=== PATIENT | female | born 1950 | race American Indian/Alaskan Native ===

== ENCOUNTER 2018-03-14 08:26 | Emergency (ER) | payer BC, MEDICARE ==
[2018-03-14 08:35] VITALS: RESP 18; TEMP 97.9
--- NOTE | 2018-03-14 09:45 | ED PDOC ---
Arrival/HPI - General Chief Complaint: Upper Extremity Problem/Injury Time Seen by Provider: 03/14/18 09:40 Historian: Patient - History of Present Illness Narrative History of Present Illness (Text): 03/14/18 09:42 This 67 yo female with pmh htn, dm, hyperlipidemia, presents to this Emergency department complaining of left shoulder pain x 7 days. Patient stated pain radiates to her neck and right shoulder. Patient denies shortness of breath, chest pain, abdominal pain, urinary symptoms, dizziness, palpitation, or abnormal gait. Time/Duration: 1 week Context: Home Past Medical History - Provider Review Nursing Documentation Reviewed: Yes - Reproductive Menopause: Yes - Cardiac Hx Hypertension: Yes - Endocrine/Metabolic Hx Diabetes Mellitus Type 2: Yes - Psychiatric Hx Substance Use: No - Surgical History Hx Section: Yes Hx Joint Replacement: Yes (left hip 2009) - Anesthesia Hx Anesthesia: Yes Hx Anesthesia Reactions: No Family/Social History - Physician Review Nursing Documentation Reviewed: Yes Family/Social History: Other (noncontributory) Smoking Status: Light Smoker < 10 Cigarettes Daily Hx Alcohol Use: No Hx Substance Use: No Allergies/Home Meds Allergies/Adverse Reactions: Allergies No Known Allergies Allergy (Verified 03/14/18 08:35) Home Medications: Home Meds Medication Instructions Recorded Confirmed Amlodipine Besylate/Benazepril 1 cap PO QAM 01/29/16 03/14/18 [Lotrel 10 mg-40 mg] Aspirin [Aspirin EC] 81 mg PO QAM 01/29/16 03/14/18 Atorvastatin [Lipitor] 20 mg PO QPM 01/29/16 03/14/18 metFORMIN [glucOPHAGE] 500 mg PO QAM 01/29/16 03/14/18 Ascorbic Acid [Vitamin C] 1,000 mg PO DAILY 03/14/18 03/14/18 [place]-3 Fatty Acids/Fish Oil [Fish 1,000 mg PO DAILY 03/14/18 03/14/18 Oil 1,000 mg Capsule] Review of Systems - Review of Systems Constitutional: Normal. absent: Fatigue, Weight Change, Fevers, Night Sweats Eyes: Normal ENT: Normal Respiratory: Normal. absent: SOB, Cough Cardiovascular: Normal. absent: Chest Pain, Palpitations, Edema, Orthopnea, Syncope Gastrointestinal: Normal. absent: Abdominal Pain, Nausea, Vomiting Genitourinary Female: Normal. absent: Dysuria, Frequency, Hematuria Musculoskeletal: Neck Pain, Other (shoulder pain) Skin: Normal. absent: Rash Neurological: Normal. absent: Headache, Dizziness, Focal Weakness, Gait Changes , Speech Changes, Facial Droop, Disequilibrium, Seizure Endocrine: Normal Hemo/Lymphatic: Normal Psychiatric: Normal Physical Exam Vital Signs Temp Pulse Resp BP Pulse Ox 03/14/18 08:31 97.9 F 77 18 156/86 H 100 Temperature: Afebrile Blood Pressure: Normal Pulse: Regular Respiratory Rate: Normal Appearance: Positive for: Well-Appearing, Non-Toxic, Comfortable Pain Distress: None Mental Status: Positive for: Alert and Oriented X 3 - Systems Exam Head: Present: Atraumatic, Normocephalic Pupils: Present: PERRL Extroacular Muscles: Present: EOMI Conjunctiva: Present: Normal Mouth: Present: Moist Mucous Membranes Neck: Present: Normal Range of Motion, Trachea Midline. No: Meningeal Signs, MIDLINE TENDERNESS, Paraspinal Tenderness, Lymphadenopathy Respiratory/Chest: Present: Clear to Auscultation, Good Air Exchange. No: Respiratory Distress, Accessory Muscle Use, Wheezes, Decreased Breath Sounds, Rhonchi Cardiovascular: Present: Regular Rate and Rhythm, Normal S1, S2. No: Murmurs Abdomen: No: Tenderness, Distention, Peritoneal Signs, Rebound, Guarding Back: Present: Normal Inspection Upper Extremity: Present: Normal Inspection, NORMAL PULSES, Tenderness (Mild tenderness over left middle deltoid area. No skin rash), Neurovascularly Intact , Capillary Refill < 2s. No: Cyanosis, Edema Lower Extremity: Present: Normal Inspection, NORMAL PULSES, Normal ROM, Neurovascularly Intact, Capillary Refill < 2 s. No: Edema, CALF TENDERNESS Neurological: Present: GCS=15, CN II-XII Intact, Speech Normal, Motor Func Grossly Intact, Normal Sensory Function, Normal Cerebellar Funct, Gait Normal, Memory Normal Skin: Present: Warm, Dry, Normal Color. No: Rashes Psychiatric: Present: Alert, Oriented x 3, Normal Insight, Normal Concentration Medical Decision Making ED Course and Treatment: 03/14/18 11:05 Re-evaluation. Patient feels better. Discussed results and plan with patient who expresses understanding. All questions answered and there is agreement with the plan to discharge home with instructions. Patient stable for discharge. Return if symptoms persist or worsen. Patient came complaining of b/l shoulder pain. Pain is constant and worsening. Patient denies trauma. Labs shows Troponin was normal. EKG NSR without ST changes. Patient feels well, and she wishes to be discharge home. Patient was recommended to f/u pmd in 1-2 days, and to return to Emergency department if pain worsen, or sob or cp. Re-evaluation Time: 11:05 Reassessment Condition: Re-examined, Improved - Lab Interpretations Lab Results: 03/14/18 10:00 03/14/18 10:00 Lab Results 03/14/18 10:00: Sodium 144, Potassium 4.1, Chloride 108 H, Carbon Dioxide 26, Anion Gap 14, BUN 11, Creatinine 0.7, Est GFR ( Amer) > 60, Est GFR (Non- Af Amer) > 60, Random Glucose 109, Calcium 9.5, Magnesium 1.8, Total Bilirubin 0.5, AST 19, ALT 19, Alkaline Phosphatase 74, Lactate Dehydrogenase 403, Total Creatine Kinase 103, Troponin I < 0.01, Total Protein 6.9, Albumin 4.1, Globulin 2.9, Albumin/Globulin Ratio 1.4 03/14/18 10:00: WBC 6.1, RBC 4.36, Hgb 12.2, Hct 37.3, MCV 85.6, MCH 28.0, MCHC 32.7, RDW 14.4, Plt Count 218, MPV 11.2 H, Gran % 64.0, Lymph % (Auto) 26.3, [place] % (Auto) 8.0 H, Eos % (Auto) 1.5, Baso % (Auto) 0.2, Gran # 3.93, Lymph # ( Auto) 1.6, [place] # (Auto) 0.5, Eos # (Auto) 0.1, Baso # (Auto) 0.01 I have reviewed the lab results: Yes Interpretation: No clinic. lab abnormalty - RAD Interpretation Radiology Orders: 03/14/18 09:41 CHEST PORTABLE [RAD] Stat - EKG Interpretation Interpreted by ED Physician: Yes (NSR @ [address] changes) Type: 12 lead EKG Comparison: Similar to previous EKG - Medication Orders Current Medication Orders: Tramadol/Acetaminophen (Ultracet 37.5/325 Mg) 1 tab PO STAT STA Stop: 03/14/18 11:05 Discontinued Medications Aspirin (Aspirin) 325 mg PO STAT STA Stop: 03/14/18 09:41 Last Admin: 03/14/18 10:24 Dose: 325 mg Disposition/Present on Arrival - Present on Arrival Any Indicators Present on Arrival: No History of DVT/PE: No History of Uncontrolled Diabetes: No Urinary Catheter: No History of Decub. Ulcer: No History Surgical Site Infection Following: None - Disposition Have Diagnosis and Disposition been Completed?: Yes Diagnosis: Shoulder pain Disposition: HOME/ ROUTINE Disposition Time: 11:06 Patient Plan: Discharge Condition: GOOD Discharge Instructions (ExitCare): Shoulder Pain (DC) Additional Instructions: Call private doctor for follow up visit in 1-2 days. take medication as instructed. Return to emergency if symptoms worsen. Do not drive or operate machinery for at least 12 hour if you take Valium. Prescriptions: Acetaminophen with Codeine [Tylenol with Codeine #3 Tablet] 1 each PO Q6H PRN # 10 tablet PRN Reason: Pain, Severe (8-10) diaZEpam [Valium] 2 mg PO DAILY #7 tab Referrals: Davy Thompson DO [Primary Care Provider] - Follow up with primary Forms: [employer] ([place]an)
--- NOTE | 2018-03-14 10:01 | RAD ---
HISTORY: left shoulder pain COMPARISON: 01/29/2016 FINDINGS: LUNGS: No active pulmonary disease. PLEURA: No significant pleural effusion identified, no pneumothorax apparent. CARDIOVASCULAR: Normal. OSSEOUS STRUCTURES: No significant abnormalities. VISUALIZED UPPER ABDOMEN: Normal. OTHER FINDINGS: None. IMPRESSION: No active disease.
[2018-03-14 10:18] LABS: BASO # 0.01 K/mm3 (0.0-2.0); BASO % 0.2 % (0.0-3.0); EOS # 0.1 (0.0-0.7); EOS % 1.5 % (1.5-5.0); GRAN # 3.93 (1.4-6.5); HEMOGLOBIN 12.2 g/dL (12.0-16.0); LYMPH # 1.6 (1.2-3.4); LYMPH % 26.3 % (22.0-35.0); MEAN CELL VOLUME 85.6 fl (80.0-105.0); MEAN CORPUSCULAR HGB CONC 32.7 g/dl (31.0-37.0); MEAN PLATELET VOLUME 11.2 fl (7.0-11.0); MONO # 0.5 (0.1-0.6); RBC 4.36 10^6/uL (3.5-6.1); RED CELL DISTRIBUTION WIDTH 14.4 % (11.5-14.5); WHITE BLOOD COUNT 6.1 10^3/ul (4.5-11.0)
[2018-03-14 10:30] LABS: ALB/GLOB RATIO 1.4 (1.1-1.8); ALBUMIN 4.1 g/dL (3.0-4.8); ALT/SGPT 19 U/L (7-56); AST/SGOT 19 U/L (14-36); BLOOD UREA NITROGEN 11 mg/dL (7-21); CALCIUM 9.5 mg/dL (8.4-10.5); GFR AFRICAN-AMERICAN > 60; GFR NON-AFRICAN AMERICAN > 60
[2018-03-14 10:40] LABS: TROPONIN I < 0.01 ng/mL
[2018-03-14] MEDS ORDERED: TraMADol/Apap 37.5/325 mg Tab PO STA (11:04)
[2018-03-14 11:09] LABS: URINE BILIRUBIN NEGATIVE (NEGATIVE); URINE BLOOD TRACE-INTACT (NEGATIVE); URINE GLUCOSE (UA) NEGATIVE (NEGATIVE); URINE LEUKOCYTE ESTERASE TRACE Leu/uL (NEGATIVE); URINE PROTEIN NEGATIVE mg/dL (<30 mg/dL); URINE UROBILINOGEN 0.2 E.U./dL (<1 E.U./dL)
[2018-03-14 11:11] LABS: URINE APPEARANCE CLEAR (CLEAR); URINE COLOR YELLOW (YELLOW)
[2018-03-14 11:23] LABS: URINE BACTERIA MANY (NEG)
[2018-03-14 11:25] VITALS: O2SAT 99
[2018-03-14 11:56] VITALS: BP 131/77; PULSE 68
--- NOTE | 2018-03-15 00:40 | CARD ---
APPROVED REPORT EKG Measurement Heart [id number] <Conclusion> Normal sinus rhythm with sinus arrhythmia Nonspecific T wave abnormality Abnormal ECG
== END 2018-03-14 12:07 | disposition home or self-care (01) ==
LOC: ED 08:26
DX: M25.512 Pain in left shoulder (principal); E11.9 Type 2 diabetes mellitus without complications; E78.5 Hyperlipidemia, unspecified; F17.210 Nicotine dependence, cigarettes, uncomplicated; I10 Essential (primary) hypertension

== ENCOUNTER 2018-12-18 11:00 | Emergency (ER) | payer MEDICARE ==
[2018-12-18 11:20] VITALS: O2SAT 99; BMI 31.6
--- NOTE | 2018-12-18 11:30 | ED PDOC ---
Arrival/HPI - General Chief Complaint: Back Pain Time Seen by Provider: 12/18/18 11:03 Historian: Patient - History of Present Illness Narrative History of Present Illness (Text): 12/18/18 11:27 A 68 year old female, whose past medical history includes hypertension, diabetes type 2, and hyperlipidemia, presents to the emergency department complaining of dominant left shoulder s/p fall. Patient reports slipped and fell and slipped in her bathroom 2 days ago. Patient denies any neck/back pain, chest pain, dyspnea, or any other complaints at this time. Admits to smoking and is an occasional drinker. Associated Symptoms (Text): 12/18/18 12:15 Mechanical slip and fall in her bathroom 2 days ago injuring her dominant left shoulder. No other injury or trauma. There is no back pain as alluded to in the triage nurse's notes. Past Medical History - Provider Review Nursing Documentation Reviewed: Yes - Infectious Disease Hx of Infectious Diseases: None - Reproductive Menopause: Yes - Cardiac Hx Hypertension: Yes - Endocrine/Metabolic Hx Diabetes Mellitus Type 2: Yes - Psychiatric Hx Substance Use: No - Surgical History Hx Section: Yes Hx Joint Replacement: Yes (left hip 2009) - Anesthesia Hx Anesthesia: Yes Hx Anesthesia Reactions: No Hx Malignant Hyperthermia: No Family/Social History - Physician Review Nursing Documentation Reviewed: Yes Family/Social History: No Known Family HX Smoking Status: Light Smoker < 10 Cigarettes Daily Hx Alcohol Use: No Hx Substance Use: No Allergies/Home Meds Allergies/Adverse Reactions: Allergies No Known Allergies Allergy (Verified 12/18/18 11:18) Home Medications: Home Meds Medication Instructions Recorded Confirmed Amlodipine Besylate/Benazepril 1 cap PO QAM 01/29/16 12/18/18 [Lotrel 10 mg-40 mg] Aspirin [Aspirin EC] 81 mg PO QAM 01/29/16 12/18/18 Atorvastatin [Lipitor] 20 mg PO QPM 01/29/16 12/18/18 metFORMIN [glucOPHAGE] 500 mg PO BID 01/29/16 12/18/18 Review of Systems - Physician Review All systems were reviewed & negative as marked: Yes - Review of Systems Cardiovascular: absent: Chest Pain, WILLS Musculoskeletal: Other (dominant left shoulder pain s/p fall). absent: Back Pain, Neck Pain Physical Exam Vital Signs Reviewed: Yes Vital Signs Temp Pulse Resp BP Pulse Ox 12/18/18 11:12 98.3 F 88 18 133/81 99 Temperature: Afebrile Blood Pressure: Normal Pulse: Regular Respiratory Rate: Normal Appearance: Positive for: Well-Appearing, Non-Toxic, Comfortable Pain Distress: None Mental Status: Positive for: Alert and Oriented X 3 - Systems Exam Head: Present: Atraumatic, Normocephalic Neck: Present: Normal Range of Motion Respiratory/Chest: Present: Clear to Auscultation, Good Air Exchange. No: Respiratory Distress, Accessory Muscle Use Cardiovascular: Present: Regular Rate and Rhythm, Normal S1, S2. No: Murmurs Abdomen: No: Tenderness, Distention, Peritoneal Signs Back: Present: Normal Inspection Upper Extremity: Present: Normal ROM (full ROM to left shoulder), NORMAL PULSES, Tenderness (mild left lateral shoulder tenderness), Neurovascularly Intact. No: Cyanosis, Edema, Swelling, Erythema, Deformity Lower Extremity: Present: Normal Inspection. No: Edema Neurological: Present: GCS=15, CN II-XII Intact, Speech Normal Skin: Present: Warm, Dry, Normal Color. No: Rashes Psychiatric: Present: Alert, Oriented x 3, Normal Insight, Normal Concentration Medical Decision Making ED Course and Treatment: 12/18/18 11:29 Impression: 68 year old female with dominant left shoulder pain s/p fall. Physical exam shows mild lateral left shoulder tenderness, full ROM, no swelling, no skin changes; no other acute findings on examination. Plan: -- Left Shoulder X-Ray -- Toradol Progress Notes: - RAD Interpretation Radiology Orders: 12/18/18 11:24 SHOULDER LEFT [RAD] Stat Shoulder 3 views shows no fracture or dislocation. Positive DJD. Patient Care Nursing Assistant: ED Physician - Medication Orders Current Medication Orders: Discontinued Medications Ketorolac Tromethamine (Toradol) 15 mg IM ONCE ONE Stop: 12/18/18 11:25 - Scribe Statement The provider has reviewed the documentation as recorded by the Scribe Anatoly Kauffman All medical record entries made by the Scribe were at my direction and personally dictated by me. I have reviewed the chart and agree that the record accurately reflects my personal performance of the history, physical exam, medical decision making, and the department course for this patient. I have also personally directed, reviewed, and agree with the discharge instructions and disposition. Disposition/Present on Arrival - Present on Arrival Any Indicators Present on Arrival: No History of DVT/PE: No History of Uncontrolled Diabetes: No Urinary Catheter: No History of Decub. Ulcer: No History Surgical Site Infection Following: None - Disposition Have Diagnosis and Disposition been Completed?: Yes Diagnosis: Sprain of left shoulder Disposition: HOME/ ROUTINE Disposition Time: 12:16 Patient Plan: Discharge Patient Problems: Current Active Problems Problem Status Onset Sprain of left shoulder Acute Condition: GOOD Discharge Instructions (ExitCare): Shoulder Sprain Additional Instructions: Rest and moist heat. Tylenol or Advil as directed on bottle as needed. Follow- up with PMD. Follow-up in ER as needed. Referrals: Davy Thompson DO [Primary Care Provider] - Follow up with primary Forms: [employer] ([place]ian)
[2018-12-18 12:28] VITALS: BP 125/86; PULSE 85; RESP 19; TEMP 98
--- NOTE | 2018-12-18 13:45 | RAD ---
Date of service: 12/18/2018 PROCEDURE: Radiographs of the Left Shoulder HISTORY: Posttraumatic back pain. COMPARISON: No prior. FINDINGS: BONES: Normal. No fracture. JOINTS: Glenohumeral and acromioclavicular degenerative change. SOFT TISSUES: Normal. OTHER FINDINGS: None. IMPRESSION: No acute findings. Degenerative changes acromioclavicular joint and to a greater extent glenohumeral relationship.
== END 2018-12-18 12:26 | disposition home or self-care (01) ==
LOC: ED 11:00
DX: S43.402A Unspecified sprain of left shoulder joint, initial encounter (principal); W01.0XXA Fall on same level from slipping, tripping and stumbling without subsequent striking against object, initial encounter; Y92.002 Bathroom of unspecified non-institutional (private) residence as the place of occurrence of the external cause
CPT/HCPCS: 73030; 96372; 99283; J1885